=== PATIENT | male | born 1995 | race Caucasian/White ===

== ENCOUNTER 2018-09-22 15:11 | Emergency (ER) | payer MEDICAID ==
[~2018-09-22] VITALS: Ht 177.8 cm; Wt 137.6 kg
[2018-09-22 16:00] VITALS: BP 151/87
--- NOTE | 2018-09-22 19:24 | NUR ---
Jr fletcher in [facility] - 09/22/18 at 1926 by [facility] PT TO ER BED 5
--- NOTE | 2018-09-22 19:26 | NUR ---
PT TO ER BED 7
--- NOTE | 2018-09-22 19:40 | NUR ---
23/M PRESENTS TO ED WITH FAMILY/FRIEND, C/O 03/04 WORSENING INTERMITTENTT LOWER BACK PAIN, EXACERBATED BY LIFTING HEAVY ITEMS AT WORK. PT STATED THAT HE HAS BEEN HAVING THIS PAIN FOR 6 MONTHS. PT DENIES FEVER, N/V/D, DYSURIA. PT AOX4, GCS 15, RR EVEN AND UNLABORED. DENIES MED HX, RX, USE OF ANALGESIC MEDS
--- NOTE | 2018-09-22 19:48 | NUR ---
DR. BAILON AT BEDSIDE FOR EVALUATION.
[2018-09-22] MEDS ORDERED: KETOROLAC 60 MG/2 ML VIAL IM ONE (20:15)
[2018-09-22 20:26] VITALS: BP 143/85
--- NOTE | 2018-09-22 20:26 | NUR ---
Patient discharged with v/s stable. Written and verbal after care instructions given and explained. Patient alert, oriented and verbalized understanding of instructions. Ambulatory with steady gait. All questions addressed prior to discharge. ID band removed. Patient advised to follow up with PMD. Rx of MOTRIN, SENOKOT given. Patient educated on indication of medication including possible reaction and side effects. Opportunity to ask questions provided and answered.
== END 2018-09-22 20:26 | disposition home or self-care (01) ==
LOC: MED 15:11
DX: S39.012A Strain of muscle, fascia and tendon of lower back, initial encounter (principal); K59.00 Constipation, unspecified; G43.809 Other migraine, not intractable, without status migrainosus; X50.0XXA Overexertion from strenuous movement or load, initial encounter; Y93.89 Activity, other specified; Y92.89 Other specified places as the place of occurrence of the external cause; Y99.0 Civilian activity done for income or pay
CPT/HCPCS: 72100; 72220; 96372; 99283; J1885

== ENCOUNTER 2018-10-10 16:36 | Emergency (ER) | payer MEDICAID ==
[~2018-10-10] VITALS: Ht 177.8 cm; Wt 138.9 kg
[2018-10-10 17:10] VITALS: BP 139/79
--- NOTE | 2018-10-10 17:34 | NUR ---
C/o lower back pain 5/10 for over 6 months. Was seen on 09/22/2018 for muscle strain and constipation prescribe with motrin and pain has not been relieve. Denies recent injury but do heavy lifting at work. Denies nvd. +CMS hx; denies rx; denies
[2018-10-10] MEDS ORDERED: KETOROLAC 60 MG/2 ML VIAL IM ONE (18:30)
[2018-10-10 19:21] VITALS: BP 135/75
== END 2018-10-10 19:22 | disposition home or self-care (01) ==
LOC: MED 16:36
DX: M51.86 Other intervertebral disc disorders, lumbar region (principal)
CPT/HCPCS: 72131; 96372; 99284; J1885